=== PATIENT | female | born 1945 | race Caucasian/White ===

== ENCOUNTER 2016-08-15 10:33 | Day surgery (SDC) | payer MEDICARE, OTHER ==
[~2016-08-15 10:33] MED LIST: Brimonidine 0.2% Ophth Soln 5 ML Bottle ONE; Cataract Ophth Solution EYELF PRN; Hypromellose 2.5% Ophth Soln 15 ML Bottle EYELF PRN; Lactated Ringers 1,000 ML IV SCH; Lidocaine 1% 2 ML ONE; Lidocaine 3.5% Ophth Gel 1 ML Bottle ONE; Povidone-Iodine 5% Sterile Ophth Soln 30 ML Bottle ONE
[2016-08-15] MEDS: Proparacaine 0.5% Ophth Soln 15 ML Bottle EYELF PRN ×2 (10:55→12:35)
[2016-08-15] MEDS ORDERED: Lidocaine 1% PF 2 ML SDV INFILT ONE (12:36)
[2016-08-15] MEDS ORDERED: Chondroitin Sulfate/Hyaluronate Sodium Ophth Inj 0.5 ML Syringe IOCULAR ONE (12:37)
[2016-08-15] MEDS ORDERED: Ciprofloxacin 0.3% Ophth Soln 2.5 ML Bottle EYELF ONE (12:38)
[2016-08-15] MEDS ORDERED: Vancomycin 500 MG SDV EYELF ONE (12:38)
[2016-08-15] MEDS ORDERED: Balanced Salt Solution Ophth Irrig 500 ML Bottle IOCULAR ONE (12:39)
[2016-08-15 12:54] VITALS: BP 165/72
--- NOTE | 2016-08-15 17:38 | OR ---
PREOPERATIVE DIAGNOSIS: Senile nuclear cataract, left eye. POSTOPERATIVE DIAGNOSIS: Pseudophakia, left eye. PROCEDURE PERFORMED: Cataract extraction with intraocular lens implantation by phacoemulsification technique, left eye. ANESTHESIA: Topical anesthesia. ESTIMATED BLOOD LOSS: None. COMPLICATIONS: None. INDICATIONS: The patient is a 71-year-old female who was found to have a senile nuclear cataract, reducing her best corrected visual acuity. After explaining the risks, benefits, and alternatives of cataract surgery, an informed consent was obtained. DESCRIPTION OF PROCEDURE: After identifying the patient in the preoperative area, the patient was brought to the operating room. The patient was prepped and draped in a sterile fashion. A lid speculum was inserted into the eye. The microscope was brought into the field. Lidocaine gel was applied to the external surface of the eye. A paracentesis was made 3 clock hours away from the surgeon's operating hand. The anterior chamber was anesthetized with preservative-free Lidocaine. The anterior chamber was filled with Viscoat. A clear corneal incision was made at the 180-degree meridian with a 2.75mm keratome. A continuous tear circular capsulorrhexis was performed. The nucleus was hydrodissected with balanced salt solution. The nucleus was sculpted and removed from the eye using a divide and conquer technique with the phacoemulsification handpiece. The residual viscoelastic was removed with the I/A handpiece. The anterior chamber and capsular bag were filled with Amvisc. An BHAKTI lens, model PCB00 with a power of 22.0 diopters and a serial number of [id number] was injected into the capsular bag. The lens was rotated completely into the capsular bag with a Sinskey hook. The residual viscoelastic was removed with the I/A handpiece. The anterior chamber was filled with balanced salt solution to a physiologic pressure. The corneal wound was closed with stromal hydration and seen to be water tight by Weck-Frances sponge testing. The patient received a drop of Zymar and Alphagan at the end of the case. There were no complications of this case. The patient will be followed postoperatively by Dr. Mala Rice. SKA: 08/15/2016 13:02:26 MODL: 08/15/2016 17:30:24 /[id number]
== END 2016-08-15 13:20 | disposition home or self-care (01) ==
LOC: VM.SDS 10:33
PROVIDERS: ATTEND Ophthalmology
DX: H25.12 Age-related nuclear cataract, left eye (principal); Z96.1 Presence of intraocular lens; I10 Essential (primary) hypertension; Z88.2 Allergy status to sulfonamides; Z88.8 Allergy status to other drugs, medicaments and biological substances; Z98.890 Other specified postprocedural states; Z79.899 Other long term (current) drug therapy
CPT/HCPCS: 00142; 66984; A9270; J3370; J7120; V2632

== ENCOUNTER 2016-09-12 09:04 | Day surgery (SDC) | payer MEDICARE, OTHER ==
[~2016-09-12 09:04] MED LIST changes: -Cataract Ophth Solution EYELF PRN; +Cataract Ophth Solution EYERT PRN; -Hypromellose 2.5% Ophth Soln 15 ML Bottle EYELF PRN; +Hypromellose 2.5% Ophth Soln 15 ML Bottle EYERT PRN; -Lactated Ringers 1,000 ML IV SCH; +Sodium Chloride 0.9% 10 ML Syringe FLUSH PRN
[2016-09-12] MEDS: Proparacaine 0.5% Ophth Soln 15 ML Bottle EYERT PRN ×2 (09:53→11:55)
[2016-09-12] MEDS ORDERED: Lidocaine 1% PF 2 ML SDV INFILT ONE (11:52)
[2016-09-12] MEDS ORDERED: Chondroitin Sulfate/Hyaluronate Sodium Ophth Inj 0.5 ML Syringe IOCULAR ONE (11:53)
[2016-09-12] MEDS ORDERED: Ciprofloxacin 0.3% Ophth Soln 2.5 ML Bottle EYERT ONE (11:53)
[2016-09-12] MEDS ORDERED: Vancomycin 500 MG SDV EYERT ONE (11:53)
[2016-09-12] MEDS ORDERED: Balanced Salt Solution Ophth Irrig 500 ML Bottle IOCULAR ONE (11:54)
[2016-09-12 12:07] VITALS: BP 183/92
--- NOTE | 2016-09-12 17:03 | OR ---
PREOPERATIVE DIAGNOSIS: Senile nuclear cataract, right eye. POSTOPERATIVE DIAGNOSIS: Pseudophakia, right eye. PROCEDURE PERFORMED: Cataract extraction with intraocular lens implantation by phacoemulsification technique, right eye. ANESTHESIA: Topical anesthesia. ESTIMATED BLOOD LOSS: None. COMPLICATIONS: None. SURGEON: Gurinder Figueroa M.D. INDICATIONS: The patient is a 71-year-old female, who was found to have a senile nuclear cataract, reducing her best corrected visual acuity. After explaining the risks, benefits, and alternatives of cataract surgery, an informed consent was obtained. DESCRIPTION OF PROCEDURE: After identifying the patient in the preoperative area, the patient was brought to the operating room. The patient was prepped and draped in a sterile fashion. A lid speculum was inserted into the eye. The microscope was brought into the field. Lidocaine gel was applied to the external surface of the eye. A paracentesis was made 3 clock hours away from the surgeon's operating hand. The anterior chamber was anesthetized with preservative-free Lidocaine. The anterior chamber was filled with Viscoat. A clear corneal incision was made at the 180-degree meridian with a 2.75mm keratome. A continuous tear circular capsulorrhexis was performed. The nucleus was hydrodissected with balanced salt solution. The nucleus was sculpted and removed from the eye using a divide and conquer technique with the phacoemulsification handpiece. The residual viscoelastic was removed with the I/A handpiece. The anterior chamber and capsular bag were filled with Amvisc. An BHAKTI lens, model ZCB00 with a power of 22.0 diopters and a serial number of [id number] was injected into the capsular bag. The lens was rotated completely into the capsular bag with a Sinskey hook. The residual viscoelastic was removed with the I/A handpiece. The anterior chamber was filled with balanced salt solution to a physiologic pressure. The corneal wound was closed with stromal hydration and seen to be water tight by Weck-Frances sponge testing. The patient received a drop of Zymar and Alphagan at the end of the case. There were no complications of this case. The patient will be followed postoperatively by Dr. Mala Rice. SKA: 09/12/2016 12:12:02 MODL: 09/12/2016 16:49:49 /[id number]
== END 2016-09-12 12:29 | disposition home or self-care (01) ==
LOC: VM.SDS 09:04
PROVIDERS: ATTEND Ophthalmology
DX: Z96.1 Presence of intraocular lens (principal); H25.11 Age-related nuclear cataract, right eye; Z88.2 Allergy status to sulfonamides; Z88.8 Allergy status to other drugs, medicaments and biological substances; I10 Essential (primary) hypertension; Z98.890 Other specified postprocedural states; Z79.899 Other long term (current) drug therapy
CPT/HCPCS: 00142; 66984; A9270; C1780; J3370

== ENCOUNTER 2017-01-06 06:00 | Emergency (ER) | payer MEDICARE, OTHER ==
[2017-01-06] MEDS ORDERED: Sodium Chloride 0.9% 10 ML Syringe FLUSH PRN (06:07)
[2017-01-06] MEDS ORDERED: Sodium Chloride 0.9% 1,000 ML IV ONE (06:07)
--- NOTE | 2017-01-06 06:15 | EDM.PDOC ---
<Bryant Paulino - Last Filed: 01/06/17 06:52> ED HPI GENERAL MEDICAL PROBLEM - General Chief Complaint: Neuro Symptoms/Deficits Stated Complaint: Nausea/Chills Time Seen by Provider: 01/06/17 06:00 Source of Information: Reports: Patient, Family, RN, RN Notes Reviewed History Limitations: Reports: No Limitations - History of Present Illness INITIAL COMMENTS - FREE TEXT/NARRATIVE: Patient presents to the ED at [facility] with multiple vague complaints. Patients states last night at supper at a local restaurant, she "passed out" less than a minute for no apparent reason. Her was with and did see her "slump her head to the left and hit it on the table." Patient states since then , she has been feeling "whoozy" and her coordination seems to be off. She feels a little unsteady on her feet. She had not falling. She has a history of a brain tumor 1998. No numbness, tingling, or paresthesia to any extremity. No chest pain or shortness of breath. No headache. Onset Date: 01/05/17 Right Hip Pain Score (Numeric/FACES): 4 - Related Data Allergies Allergy/AdvReac Type Severity Reaction Status Date / Time Cydggev-Cdt-Aso Reductase Allergy Other Verified 01/06/17 06:05 Inhibitor Sulfa (Sulfonamide Allergy Hives Verified 01/06/17 06:05 Antibiotics) Home Meds: Home Meds Phenytoin Sodium Extended [Dilantin] 100 mg PO DAILY 08/03/15 [History] Aspirin [Ecotrin] 81 mg PO DAILY 08/13/16 [History] Celecoxib [CeleBREX] 200 mg PO ASDIRECTED PRN 08/13/16 [History] Diazepam [Valium] 2.5 - 5 mg PO ASDIRECTED PRN 08/13/16 [History] Enalapril Maleate [Vasotec] 20 mg PO DAILY 08/13/16 [History] Gabapentin [Neurontin] 200 mg PO DAILY 08/13/16 [History] Ibuprofen [Advil] 400 mg PO Q6H PRN 08/13/16 [History] Triamterene/Hydrochlorothiazid [Triamterene-HCTZ 37.5-25 MG] 1 tab PO DAILY [History] Past Medical History HEENT History: Reports: Cataract Cardiovascular History: Reports: Hypertension Respiratory History: Reports: None Gastrointestinal History: Reports: None Genitourinary History: Reports: None Musculoskeletal History: Reports: Back Pain, Chronic Neurological History: Reports: Seizure Psychiatric History: Reports: None Endocrine/Metabolic History: Reports: None Hematologic History: Reports: None Immunologic History: Reports: None Oncologic (Cancer) History: Reports: None Dermatologic History: Reports: None - Past Surgical History HEENT Surgical History: Reports: Eye Surgery Cardiovascular Surgical History: Reports: None GI Surgical History: Reports: None Neurological Surgical History: Reports: Other (See Below) Other Neurological Surgeries/Procedures: EPIDERAL STEROID INJECTIONS Musculoskeletal Surgical History: Reports: None Social & Family History - Tobacco Use Smoking Status *Q: Never Smoker - Recreational Drug Use Recreational Drug Use: No Drug Use in Last 12 Months: No ED ROS GENERAL - Review of Systems Review Of Systems: See Below Constitutional: Reports: Weakness. Denies: Fever, Chills Respiratory: Denies: Shortness of Breath, Cough Cardiovascular: Denies: Chest Pain, Palpitations GI/Abdominal: Reports: Nausea. Denies: Abdominal Pain, Vomiting Skin: Reports: No Symptoms Neurological: Reports: Confusion, Difficulty Walking, Weakness, Gait Disturbance. Denies: Headache, Numbness, Paresthesia, Tingling ED EXAM, GENERAL - Physical Exam Exam: See Below Exam Limited By: No Limitations General Appearance: Alert, No Apparent Distress Eye Exam: Bilateral Eye: EOMI, Normal Inspection, PERRL Ears: Normal External Exam, Normal Canal, Normal TMs Ear Exam: Bilateral Ear: TM normal Head: Atraumatic, Normocephalic Neck: Supple Respiratory/Chest: No Respiratory Distress, Lungs Clear, Normal Breath Sounds Cardiovascular: Normal Peripheral Pulses, Regular Rate, Rhythm, No Murmur Peripheral Pulses: 2+: Radial (L), Radial (R) GI/Abdominal: Normal Bowel Sounds, Soft, Non-Tender Extremities: Normal Inspection Neurological: Alert, Oriented, Normal Cognition Skin Exam: Warm, Dry, Intact, Normal Color, No Rash EKG INTERPRETATION EKG Date: 01/06/17 Time: 06:48 Rhythm: NSR Rate (Beats/Min): 68 Colman: Normal P-Wave: Present QRS: Normal ST-T: Normal QT: Normal OH/PQ Interval: 0.20 Comparison: NA - No Prior EKG EKG Interpretation Comments: 1. Sinus Rhythm with Sinus Arrhythmia 2. Moderate intraventricular conduction delay Course - Vital Signs Last Recorded V/S: Last Vital Signs Temp 36.4 C 01/06/17 06:24 Pulse 72 01/06/17 07:25 Resp 16 01/06/17 06:24 BP 157/80 H 01/06/17 07:25 Pulse Ox 97 01/06/17 06:24 - Orders/Labs/Meds Labs: Laboratory Tests 01/06/17 01/06/17 01/06/17 Range/Units 06:34 06:34 06:34 WBC 6.6 (4.0-10.0) x10^3/uL RBC 4.36 (4.00-5.50) x10^6/uL Hgb 13.5 (12.0-16.0) g/dL Hct 39.1 (33.0-47.0) % MCV 89.7 (78.0-93.0) fL MCH 31.0 (26.0-32.0) pg MCHC 34.5 (32.0-36.0) g/dL RDW Coeff of Stas 14.4 (10.0-15.0) % Plt Count 252 (130-400) x10^3/uL Neut % (Auto) 74.0 (50.0-80.0) % Lymph % (Auto) 14.6 L (25.0-50.0) % Carver % (Auto) 10.5 (2.0-11.0) % Eos % (Auto) 0.6 (0.0-4.0) % Baso % (Auto) 0.3 (0.2-1.2) % Sodium 130 L (136-145) mmol/L Potassium 3.6 (3.5-5.1) mmol/L Chloride 93 L (98-107) mmol/L Carbon Dioxide 29 (21-32) mmol/L BUN 13 (7-18) mg/dL Creatinine 0.8 (0.55-1.02) mg/dL Est Cr Clr Drug Dosing 49.53 mL/min Estimated GFR (MDRD) > 60 Glucose 107 H (74-106) mg/dL Calcium 8.9 (8.5-10.1) mg/dL Phosphorus 2.8 (2.6-4.7) mg/dL Magnesium 1.6 L (1.8-2.4) mg/dL Creatine Kinase 81 (26-192) U/L Creatine Kinase Index TNP CK-MB (CK-2) TNP Troponin I < 0.017 (<=0.056) ng/mL Urine Color (YELLOW) POC Urine Appearance (CLEAR) POC Urine pH (5.0-8.0) Ur Specific [place] (1.005-1.030) POC Urine Protein (NEGATIVE) POC Ur Glucose (UA) (NEGATIVE) POC Urine Ketones (NEGATIVE) POC Ur Occult Blood (NEGATIVE) POC Urine Nitrite (NEGATIVE) POC Urine Bilirubin (NEGATIVE) POC Urine Urobilinogen (0.2) POC U Leukocyte Esteras (NEGATIVE) Urine RBC Urine WBC Ur Squamous Epith Cells Urine Bacteria Urine Mucus Urine Opiates Screen (NEGATIVE) Ur Buprenorphine Scrn (NEGATIVE) Ur Oxycodone Screen (NEGATIVE) Urine Methadone Screen (NEGATIVE) Ur Barbituates Screen (NEGATIVE) Phenytoin 4 L (10-20) ug/mL Ur Tricyclics Screen (NEGATIVE) Ur Amphetamines Screen (NEGATIVE) U Methamphetamines Scrn (NEGATIVE) Urine MDMA Screen (NEGATIVE) U Benzodiazepines Scrn (NEGATIVE) Urine Cocaine Screen (NEGATIVE) U Marijuana (THC) Screen (NEGATIVE) 01/06/17 Range/Units 07:20 WBC (4.0-10.0) x10^3/uL RBC (4.00-5.50) x10^6/uL Hgb (12.0-16.0) g/dL Hct (33.0-47.0) % MCV (78.0-93.0) fL MCH (26.0-32.0) pg MCHC (32.0-36.0) g/dL RDW Coeff of Stas (10.0-15.0) % Plt Count (130-400) x10^3/uL Neut % (Auto) (50.0-80.0) % Lymph % (Auto) (25.0-50.0) % Carver % (Auto) (2.0-11.0) % Eos % (Auto) (0.0-4.0) % Baso % (Auto) (0.2-1.2) % Sodium (136-145) mmol/L Potassium (3.5-5.1) mmol/L Chloride (98-107) mmol/L Carbon Dioxide (21-32) mmol/L BUN (7-18) mg/dL Creatinine (0.55-1.02) mg/dL Est Cr Clr Drug Dosing mL/min Estimated GFR (MDRD) Glucose (74-106) mg/dL Calcium (8.5-10.1) mg/dL Phosphorus (2.6-4.7) mg/dL Magnesium (1.8-2.4) mg/dL Creatine Kinase (26-192) U/L Creatine Kinase Index CK-MB (CK-2) Troponin I (<=0.056) ng/mL Urine Color Yellow (YELLOW) POC Urine Appearance Clear (CLEAR) POC Urine pH 6.5 (5.0-8.0) Ur Specific [place] 1.015 (1.005-1.030) POC Urine Protein 30 H (NEGATIVE) POC Ur Glucose (UA) Negative (NEGATIVE) POC Urine Ketones Negative (NEGATIVE) POC Ur Occult Blood Negative (NEGATIVE) POC Urine Nitrite Negative (NEGATIVE) POC Urine Bilirubin Negative (NEGATIVE) POC Urine Urobilinogen 0.2 (0.2) POC U Leukocyte Esteras Negative (NEGATIVE) Urine RBC 0-5 Urine WBC 0-5 Ur Squamous Epith Cells Many Urine Bacteria Not seen Urine Mucus Few Urine Opiates Screen Negative (NEGATIVE) Ur Buprenorphine Scrn Negative (NEGATIVE) Ur Oxycodone Screen Negative (NEGATIVE) Urine Methadone Screen Negative (NEGATIVE) Ur Barbituates Screen Negative (NEGATIVE) Phenytoin (10-20) ug/mL Ur Tricyclics Screen Negative (NEGATIVE) Ur Amphetamines Screen Negative (NEGATIVE) U Methamphetamines Scrn Negative (NEGATIVE) Urine MDMA Screen Negative (NEGATIVE) U Benzodiazepines Scrn Negative (NEGATIVE) Urine Cocaine Screen Negative (NEGATIVE) U Marijuana (THC) Screen Negative (NEGATIVE) Meds: Medications Discontinued Medications Generic Name Dose Route Start Last Admin Trade Name Freq PRN Reason Stop Dose Admin Sodium Chloride 1,000 mls @ 999 mls/hr 01/06/17 06:07 01/06/17 06:22 Normal Saline IV 01/06/17 07:07 999 mls/hr ONETIME ONE Administration Magnesium Chloride 64 mg 01/06/17 07:11 01/06/17 07:19 Mag-64 PO 01/06/17 07:12 64 mg ONETIME ONE Administration Ondansetron HCl 4 mg 01/06/17 06:16 01/06/17 06:22 Zofran IVPUSH 01/06/17 06:17 4 mg ONETIME ONE Administration Oral Electrolytes 1 each 01/06/17 07:27 Thermotabs PO 01/06/17 07:28 ONETIME ONE Sodium Chloride 10 ml 01/06/17 06:07 Saline Flush FLUSH ASDIRECTED PRN Keep Vein Open Departure - Departure Disposition: Home, Self-Care 01 Clinical Impression: Syncope Qualifiers: Syncope type: unspecified Qualified Code(s): R55 - Syncope and collapse - Discharge Information Instructions: Syncope, [id number] Referrals: Sanna Montes TOGGLER [Primary Care Provider] - Forms: ED Department Discharge Additional Instructions: 1. Follow up with Sanna at [facility]. She may want to see you and send you to both neurology and cardiology to determine why you fainted this evening. 2. All labs and diagnostic tests were negative as to a cause. Your heart enzymes, EKG, head CT and labs are negative. Your sodium and magnesium are low. 3. Drink plenty of water to stay hydrated. You may want to take some salt tablets to raise your sodium level and have this rechecked at [facility]. 4. It is possible that this the beginning of a viral illness based on some of your continuing illness such as nausea. 5. Please call us if you have any questions or concerns or if you feel your symptoms are worsening. - Problem List Review Problem List Initiated/Reviewed/Updated: Yes <Luan Teague - Last Filed: 01/07/17 11:38> Course - Re-Assessments/Exams Free Text/Narrative Re-Assessment/Exam: 01/06/17 07:28 Review of labs; Na 130, K+ 3.6, M.6, negative troponin, dilantin level low Departure - Departure Time of Disposition: 07:35 Condition: Good - Problem List & Annotations (1) Syncope SNOMED Code(s): 017243662 Code(s): R55 - SYNCOPE AND COLLAPSE Status: Acute Priority: Medium Qualifiers: Syncope type: unspecified Qualified Code(s): R55 - Syncope and collapse - Assessment/Plan Assessment:: Syncope Plan: 1. Follow up with Sanna at [facility]. She may want to see you and send you to both neurology and cardiology to determine why you fainted this evening. 2. All labs and diagnostic tests were negative as to a cause. Your heart enzymes, EKG, head CT and labs are negative. Your sodium and magnesium are low. 3. Drink plenty of water to stay hydrated. You may want to take some salt tablets to raise your sodium level and have this rechecked at [facility]. 4. It is possible that this the beginning of a viral illness based on some of your continuing illness such as nausea. 5. Please call us if you have any questions or concerns or if you feel your symptoms are worsening.
[2017-01-06] MEDS ORDERED: Ondansetron 4 MG/2 ML SDV IVPUSH ONE (06:16)
[2017-01-06 07:09] LABS: CHLORIDE,CL 93 mmol/L (98-107); SODIUM,NA 130 mmol/L (136-145)
[2017-01-06] MEDS ORDERED: Magnesium Chloride 64 MG Tab.ER PO ONE (07:11)
[2017-01-06] MEDS ORDERED: Potassium Chloride/Sodium Chloride Tab PO ONE (07:27)
[2017-01-06 08:19] VITALS: BP 157/80
== END 2017-01-06 07:45 | disposition home or self-care (01) ==
LOC: VM.ED 06:00
DX: R55 Syncope and collapse (principal); I10 Essential (primary) hypertension; Z88.8 Allergy status to other drugs, medicaments and biological substances; Z88.2 Allergy status to sulfonamides; Z79.899 Other long term (current) drug therapy; Z79.82 Long term (current) use of aspirin
CPT/HCPCS: 36415; 70450; 80048; 80185; 80305; 81002; 81015; 82550; 83735; 84100; 84484; 85025; 93005; 96361; 96374; 99284; A9270; J2405; J7030

== ENCOUNTER 2017-08-06 19:10 | Emergency (ER) | payer MEDICARE, OTHER ==
[2017-08-06 19:28] VITALS: BP 124/84
--- NOTE | 2017-08-06 19:50 | EDM.PDOC ---
ED HPI GENERAL MEDICAL PROBLEM - General Chief Complaint: Upper Extremity Injury/Pain Stated Complaint: right shoulder pain Time Seen by Provider: 08/06/17 19:23 Source of Information: Reports: Patient, RN, RN Notes Reviewed - History of Present Illness INITIAL COMMENTS - FREE TEXT/NARRATIVE: Patient comes to the ED with complaints of right shoulder pain. She states her right shoulder was feeling achy yesterday, but was not painful. Today she was at [facility] and her arm started to hurt and she is unable to move without pain. She denies any previous injury. She denies numbness or tingling to her arm. She does state she had seen Dr. Mayer at [facility] about 6-8 months ago and had a cortisone shot to that shoulder. She states they told her she did not want to do surgery at that time. She denies having an MRI done on this shoulder. Patient denies shortness of breath or chest pain. Onset: Other Onset Date: 08/05/17 Duration: Day(s):, Getting Worse Location: Reports: Upper Extremity, Right Quality: Reports: Sharp Severity: Moderate Improves with: Reports: Immobilization Worsens with: Reports: Immobilization Associated Symptoms: Reports: No Other Symptoms. Denies: Chest Pain, Fever/ Chills, Shortness of Breath Right Shoulder Pain Score (Numeric/FACES): 7 - Related Data Allergies Allergy/AdvReac Type Severity Reaction Status Date / Time Rctdvpa-Nzd-Kkh Reductase Allergy Other Verified 08/06/17 19:49 Inhibitor Sulfa (Sulfonamide Allergy Hives Verified 08/06/17 19:49 Antibiotics) Home Meds: Home Meds Phenytoin Sodium Extended [Dilantin] 100 mg PO DAILY 08/03/15 [History] Aspirin [Ecotrin] 81 mg PO DAILY 08/13/16 [History] Celecoxib [CeleBREX] 200 mg PO ASDIRECTED PRN 08/13/16 [History] Diazepam [Valium] 2.5 - 5 mg PO ASDIRECTED PRN 08/13/16 [History] Enalapril Maleate [Vasotec] 20 mg PO DAILY 08/13/16 [History] Ibuprofen [Advil] 400 mg PO Q6H PRN 08/13/16 [History] Triamterene/Hydrochlorothiazid [Triamterene-HCTZ 37.5-25 MG] 1 tab PO DAILY [History] Gluc Corrales/Msm/Chondro Corrales A/C/Mn [Flexi Joint Tablet] 1 each PO BID 08/06/17 [ History] Pantoprazole Sodium [Protonix] 20 mg PO DAILY 08/06/17 [History] Pravastatin Sodium 10 mg PO BEDTIME 08/06/17 [History] Triamcinolone Acetonide [Triamcinolone Acetonide 0.1% Crm] 15 gm TOP ASDIRECTED 08/06/17 [History] Past Medical History HEENT History: Reports: Cataract Cardiovascular History: Reports: Hypertension Respiratory History: Reports: None Gastrointestinal History: Reports: None Genitourinary History: Reports: None Musculoskeletal History: Reports: Back Pain, Chronic Neurological History: Reports: Seizure Psychiatric History: Reports: None Endocrine/Metabolic History: Reports: None Hematologic History: Reports: None Immunologic History: Reports: None Oncologic (Cancer) History: Reports: None Dermatologic History: Reports: None - Past Surgical History HEENT Surgical History: Reports: Eye Surgery Cardiovascular Surgical History: Reports: None GI Surgical History: Reports: None Neurological Surgical History: Reports: Other (See Below) Other Neurological Surgeries/Procedures: EPIDERAL STEROID INJECTIONS Musculoskeletal Surgical History: Reports: None Social & Family History - Tobacco Use Smoking Status *Q: Never Smoker - Alcohol Use Alcohol Use History: No - Recreational Drug Use Recreational Drug Use: No Drug Use in Last 12 Months: No Review of Systems - Review of Systems Review Of Systems: See Below Constitutional: Reports: No Symptoms Respiratory: Reports: No Symptoms. Denies: Shortness of Breath Cardiovascular: Reports: No Symptoms. Denies: Chest Pain Musculoskeletal: Reports: Shoulder Pain. Denies: Arm Pain Skin: Reports: No Symptoms. Denies: Bruising Neurological: Denies: Numbness, Tingling ED EXAM, GENERAL - Physical Exam Exam: See Below Exam Limited By: No Limitations General Appearance: Alert, No Apparent Distress Neck: Normal Inspection, Supple, Non-Tender, Full Range of Motion Respiratory/Chest: No Respiratory Distress, Lungs Clear, Normal Breath Sounds, No Accessory Muscle Use, Chest Non-Tender Cardiovascular: Normal Peripheral Pulses, Regular Rate, Rhythm, No Edema, No Gallop, No JVD, No Murmur, No Rub Peripheral Pulses: 2+: Radial (L), Radial (R) Extremities: Normal Capillary Refill, Limited Range of Motion. No: Normal Range of Motion Neurological: Alert, Oriented, CN II-XII Intact, Normal Cognition, Normal Gait, Normal Reflexes, No Motor/Sensory Deficits Psychiatric: Normal Affect, Normal Mood Skin Exam: Warm, Dry, Intact, Normal Color, No Rash Lymphatic: No Adenopathy Course - Vital Signs Last Recorded V/S: Last Vital Signs Temp 36.1 C 08/06/17 19:25 Pulse 82 08/06/17 19:25 Resp 18 08/06/17 19:25 BP 124/84 08/06/17 19:25 Pulse Ox 97 08/06/17 19:25 - Orders/Labs/Meds Orders: Active Orders 24 hr Category Date Time Status Shoulder Comp Rt [CR] Stat Exams 08/06/17 19:38 Taken - Radiology Interpretation Free Text/Narrative:: Shoulder left 3 view: No acute plain film findings - see scanned report in the EMR. Departure - Departure Time of Disposition: 20:33 Disposition: Home, Self-Care 01 Condition: Good Clinical Impression: Shoulder pain, right Qualifiers: Chronicity: acute Qualified Code(s): M25.511 - Pain in right shoulder - Discharge Information Instructions: Shoulder Pain, How to Use a Sling, [id number] Referrals: PCP,Unknown [Primary Care Provider] - Christina Rausch NP [Ordering Only Provider] - Forms: ED Department Discharge Additional Instructions: May alternate tylenol/ibuprofen as needed for the pain. May use sling for comfort. Stay well hydrated and rest. Follow up with your PCP this week for further workup. Call with questions or concerns. - Problem List Review Problem List Initiated/Reviewed/Updated: Yes - My Orders Last 24 Hours: My Active Orders 08/06/17 19:38 Shoulder Comp Rt [CR] Stat - Assessment/Plan Last 24 Hours: My Active Orders 08/06/17 19:38 Shoulder Comp Rt [CR] Stat
== END 2017-08-06 20:48 | disposition home or self-care (01) ==
LOC: VM.ED 19:10
DX: M25.511 Pain in right shoulder (principal); I10 Essential (primary) hypertension; Z88.2 Allergy status to sulfonamides; Z88.8 Allergy status to other drugs, medicaments and biological substances; Z79.82 Long term (current) use of aspirin; Z79.899 Other long term (current) drug therapy
CPT/HCPCS: 73030-RT; 99283

== ENCOUNTER 2018-01-21 12:17 | Emergency (ER) | payer MEDICARE, OTHER ==
[2018-01-21] MEDS ORDERED: Sodium Chloride 0.9% 10 ML Syringe FLUSH PRN (12:37)
[2018-01-21] MEDS ORDERED: Lactated Ringers 1,000 ML IV SCH (12:45)
[2018-01-21] MEDS ORDERED: Iopamidol 612 MG/ML 100 ML Bottle IVPUSH ONE (13:09)
[2018-01-21 13:24] LABS: ANION GAP 11.8 mmol/L (10-20); CHLORIDE,CL 98 mmol/L (98-107); SODIUM,NA 137 mmol/L (136-145)
[2018-01-21] MEDS ORDERED: Ondansetron 4 MG/2 ML SDV IVPUSH ONE (13:43)
--- NOTE | 2018-01-21 13:58 | EDM.PDOC ---
ED HPI GENERAL MEDICAL PROBLEM - General Chief Complaint: Abdominal Pain Stated Complaint: ABDOMINAL PAIN Time Seen by Provider: 01/21/18 12:20 Source of Information: Reports: Patient History Limitations: Reports: No Limitations - History of Present Illness INITIAL COMMENTS - FREE TEXT/NARRATIVE: Patient does report nausea and vomiting over the last several days. She was seen at the [facility] yesterday and diagnosed with constipation. She was told to take stool softener/laxative. She states her result was watery stools. She denies fever, chest pain, sob, headache, change in LOC, blood in urine or stool. She states her pain is epigastric and worse with palpation. Onset: Today Onset Date: 01/20/18 Duration: Intermittent Location: Reports: Abdomen Quality: Reports: Sharp, Stabbing Severity: Moderate Worsens with: Reports: Other (palpation, eating) Associated Symptoms: Reports: Nausea/Vomiting Epigastric Pain Score (Numeric/FACES): 9 - Related Data Allergies Allergy/AdvReac Type Severity Reaction Status Date / Time Cuffmfh-Trj-Pto Reductase Allergy Other Verified 01/21/18 12:31 Inhibitor Sulfa (Sulfonamide Allergy Hives Verified 01/21/18 12:31 Antibiotics) Home Meds: Home Meds Phenytoin Sodium Extended [Dilantin] 100 mg PO DAILY 08/03/15 [History] Aspirin [Ecotrin] 81 mg PO DAILY 08/13/16 [History] Celecoxib [CeleBREX] 200 mg PO ASDIRECTED PRN 08/13/16 [History] Diazepam [Valium] 2.5 - 5 mg PO ASDIRECTED PRN 08/13/16 [History] Enalapril Maleate [Vasotec] 20 mg PO DAILY 08/13/16 [History] Ibuprofen [Advil] 400 mg PO Q6H PRN 08/13/16 [History] Triamterene/Hydrochlorothiazid [Triamterene-HCTZ 37.5-25 MG] 1 tab PO DAILY [History] Gluc [place]/Msm/Chondro [place] A/C/Mn [Flexi Joint Tablet] 1 each PO BID 08/06/17 [ History] Pantoprazole Sodium [Protonix] 20 mg PO DAILY 08/06/17 [History] Pravastatin Sodium 10 mg PO BEDTIME 08/06/17 [History] Triamcinolone Acetonide [Triamcinolone Acetonide 0.1% Crm] 15 gm TOP ASDIRECTED 08/06/17 [History] Past Medical History HEENT History: Reports: Cataract Cardiovascular History: Reports: Hypertension Respiratory History: Reports: None Gastrointestinal History: Reports: None Genitourinary History: Reports: None Musculoskeletal History: Reports: Back Pain, Chronic Neurological History: Reports: Seizure Psychiatric History: Reports: None Endocrine/Metabolic History: Reports: None Hematologic History: Reports: None Immunologic History: Reports: None Oncologic (Cancer) History: Reports: None Dermatologic History: Reports: None - Past Surgical History HEENT Surgical History: Reports: Eye Surgery Cardiovascular Surgical History: Reports: None GI Surgical History: Reports: None Neurological Surgical History: Reports: Other (See Below) Other Neurological Surgeries/Procedures: EPIDERAL STEROID INJECTIONS Musculoskeletal Surgical History: Reports: None Social & Family History - Tobacco Use Smoking Status *Q: Unknown Ever Smoked ED ROS GENERAL - Review of Systems Review Of Systems: See Below Constitutional: Reports: No Symptoms HEENT: Reports: No Symptoms Respiratory: Reports: No Symptoms Cardiovascular: Reports: No Symptoms Endocrine: Reports: No Symptoms GI/Abdominal: Reports: Abdominal Pain, Nausea, Vomiting : Reports: No Symptoms Musculoskeletal: Reports: No Symptoms Skin: Reports: No Symptoms Neurological: Reports: No Symptoms Psychiatric: Reports: No Symptoms Hematologic/Lymphatic: Reports: No Symptoms Immunologic: Reports: No Symptoms ED EXAM, GI/ABD - Physical Exam Exam: See Below Exam Limited By: No Limitations General Appearance: Alert, WD/WN, Mild Distress Eyes: Bilateral: EOMI Ears: Normal TMs Throat/Mouth: Normal Inspection, Normal Lips, Normal Teeth, Normal Gums, Normal Oropharynx, Normal Voice, No Airway Compromise Head: Atraumatic, Normocephalic Neck: Normal Inspection, Supple, Non-Tender, Full Range of Motion Respiratory/Chest: No Respiratory Distress, Lungs Clear, Normal Breath Sounds, No Accessory Muscle Use, Chest Non-Tender Cardiovascular: Normal Peripheral Pulses, Regular Rate, Rhythm, No Edema, No Gallop, No JVD, No Rub, Systolic Murmur, Other (valve click) GI/Abdominal Exam: Normal Bowel Sounds, Soft, No Distention, Tender Back Exam: Normal Inspection, Full Range of Motion, NT Extremities: Normal Inspection, Normal Range of Motion, Non-Tender, Normal Capillary Refill, No Pedal Edema Neurological: Alert, Oriented, CN II-XII Intact, Normal Cognition, Normal Gait, Normal Reflexes, No Motor/Sensory Deficits Psychiatric: Normal Affect, Normal Mood Skin Exam: Warm, Dry, Intact, Normal Color, No Rash Lymphatic: No Adenopathy EKG INTERPRETATION EKG Date: 01/21/18 Time: 13:07 Rhythm: Other (sinus with first degree av block) Rate (Beats/Min): 84 [place]: Normal P-Wave: Present QRS: Normal ST-T: Normal QT: Normal Course - Vital Signs Last Recorded V/S: Last Vital Signs Temp 36.2 C 01/21/18 12:20 Pulse 80 01/21/18 12:20 Resp 18 01/21/18 12:20 BP 124/80 01/21/18 12:20 Pulse Ox 93 L 01/21/18 12:20 - Orders/Labs/Meds Orders: Active Orders 24 hr Category Date Time Status EKG Documentation Completion [RC] STAT Care 01/21/18 12:28 Ordered Abdomen Pelvis w Cont [CT] Stat Exams 01/21/18 12:28 Ordered MAGNESIUM [CHEM] Stat Lab 01/21/18 13:41 Ordered URINALYSIS W/MICROSCOPIC [UA W/MICROSCOPIC] [URIN] Stat Lab 01/21/18 13:41 Ordered Lactated Ringers @ 125 MLS/HR(1,000ml) Med 01/21/18 12:45 Ordered Lactated Ringers [Ringers, Lactated] 1,000 ml IV ASDIRECTED Sodium Chloride 0.9% [Saline Flush] Med 01/21/18 12:37 Ordered 10 ml FLUSH ASDIRECTED PRN Saline Lock Insert [OM.PC] Routine Oth 01/21/18 12:37 Ordered Medication Orders Lactated Ringer's (Ringers, Lactated) 1,000 mls @ 125 mls/hr IV ASDIRECTED MÓNICA Last Admin: 01/21/18 13:03 Dose: 125 mls/hr Sodium Chloride (Saline Flush) 10 ml FLUSH ASDIRECTED PRN PRN Reason: Keep Vein Open Labs: Laboratory Tests 01/21/18 01/21/18 01/21/18 Range/Units 12:44 12:44 12:44 WBC 5.9 (4.0-10.0) x10^3/uL RBC 4.39 (4.00-5.50) x10^6/uL Hgb 13.6 (12.0-16.0) g/dL Hct 39.5 (33.0-47.0) % MCV 90.0 (78.0-93.0) fL MCH 31.0 (26.0-32.0) pg MCHC 34.4 (32.0-36.0) g/dL RDW Coeff of Stas 14.4 (10.0-15.0) % Plt Count 245 (130-400) x10^3/uL Neut % (Auto) 56.8 (50.0-80.0) % Lymph % (Auto) 24.4 L (25.0-50.0) % [place] % (Auto) 15.7 H (2.0-11.0) % Eos % (Auto) 2.6 (0.0-4.0) % Baso % (Auto) 0.5 (0.2-1.2) % PT 10.7 (9.6-11.4) SEC INR 1.0 L (2.0-3.5) Sodium 137 (136-145) mmol/L Potassium 2.8 L* (3.5-5.1) mmol/L Chloride 98 (98-107) mmol/L Carbon Dioxide 30 (21-32) mmol/L Anion Gap 11.8 (10-20) mmol/L BUN 28 H (7-18) mg/dL Creatinine 1.1 H (0.55-1.02) mg/dL Est Cr Clr Drug Dosing 43.63 mL/min Estimated GFR (MDRD) 49 Glucose 97 (74-106) mg/dL Lactic Acid (0.4-2.0) mmol/L Calcium 9.7 (8.5-10.1) mg/dL Corrected Calcium 10.10 (8.5-10.1) mg/dL Total Bilirubin 0.4 (0.2-1.0) mg/dL AST 26 (15-37) U/L ALT 39 (14-59) U/L Alkaline Phosphatase 94 (46-116) U/L Troponin I < 0.017 (<=0.056) ng/mL NT-Pro-B Natriuret Pep (<=125) pg/mL Total Protein 8.0 (6.4-8.2) g/dL Albumin 3.5 (3.4-5.0) g/dL Globulin 4.5 Albumin/Globulin Ratio 0.78 Amylase 75 (25-115) U/L TSH, Ultra Sensitive 1.569 (0.358-3.74) uIU/mL 01/21/18 01/21/18 Range/Units 12:44 12:44 WBC (4.0-10.0) x10^3/uL RBC (4.00-5.50) x10^6/uL Hgb (12.0-16.0) g/dL Hct (33.0-47.0) % MCV (78.0-93.0) fL MCH (26.0-32.0) pg MCHC (32.0-36.0) g/dL RDW Coeff of Stas (10.0-15.0) % Plt Count (130-400) x10^3/uL Neut % (Auto) (50.0-80.0) % Lymph % (Auto) (25.0-50.0) % [place] % (Auto) (2.0-11.0) % Eos % (Auto) (0.0-4.0) % Baso % (Auto) (0.2-1.2) % PT (9.6-11.4) SEC INR (2.0-3.5) Sodium (136-145) mmol/L Potassium (3.5-5.1) mmol/L Chloride (98-107) mmol/L Carbon Dioxide (21-32) mmol/L Anion Gap (10-20) mmol/L BUN (7-18) mg/dL Creatinine (0.55-1.02) mg/dL Est Cr Clr Drug Dosing mL/min Estimated GFR (MDRD) Glucose (74-106) mg/dL Lactic Acid 1.3 (0.4-2.0) mmol/L Calcium (8.5-10.1) mg/dL Corrected Calcium (8.5-10.1) mg/dL Total Bilirubin (0.2-1.0) mg/dL AST (15-37) U/L ALT (14-59) U/L Alkaline Phosphatase (46-116) U/L Troponin I (<=0.056) ng/mL NT-Pro-B Natriuret Pep 47 (<=125) pg/mL Total Protein (6.4-8.2) g/dL Albumin (3.4-5.0) g/dL Globulin Albumin/Globulin Ratio Amylase (25-115) U/L TSH, Ultra Sensitive (0.358-3.74) uIU/mL Meds: Medications Generic Name Dose Route Start Last Admin Trade Name Freq PRN Reason Stop Dose Admin Lactated Ringer's 1,000 mls @ 125 mls/hr 01/21/18 12:45 01/21/18 13:03 Ringers, Lactated IV 125 mls/hr ASDIRECTED MÓNICA Administration Sodium Chloride 10 ml 01/21/18 12:37 Saline Flush FLUSH ASDIRECTED PRN Keep Vein Open Discontinued Medications Generic Name Dose Route Start Last Admin Trade Name Freq PRN Reason Stop Dose Admin Iopamidol 100 ml 01/21/18 13:09 01/21/18 13:46 Isovue-300 (61%) IVPUSH 01/21/18 13:10 100 ml ONETIME ONE Administration Ondansetron HCl 4 mg 01/21/18 13:43 Zofran IVPUSH 01/21/18 13:44 ONETIME ONE - Radiology Interpretation Free Text/Narrative:: cholelithiases with changes of acute cholecystitis per CT report Departure - Departure Time of Disposition: 15:52 Disposition: Home, Self-Care 01 Condition: Good Clinical Impression: Cholecystitis - Discharge Information *PRESCRIPTION DRUG MONITORING PROGRAM REVIEWED*: No *COPY OF PRESCRIPTION DRUG MONITORING REPORT IN PATIENT KUSHAL: No Instructions: Cholecystitis Referrals: Carly Trotter DO [Primary Care Provider] - Additional Instructions: I visited with Dr. Davis regarding your scan and symptoms. He would like you to go home and come into the clinic and schedule your surgery. Please call [facility] to do so. I have given you a prescription for zofran which is for nausea, hydrocodone for pain, and augmentin which is an antibiotic. Please eat extra yogurt or start a probiotic for the next 1-2 months due to the antibiotic use. Stay well hydrated. Please call the hospital if you have any other questions or concerns. If you experience worsening abdominal pain, fever, worsening nausea and vomiting , come back to the ER. ED Communication - Discussed Case With (1) Discussed Case With (1): Outpatient Provider (REviewed case with Dr. Davis, surgeon at [facility]. Recommended schedule via clinic visit for gall bladder removal, start on pain medications, anti-emetic, antibiotic.) - Problem List & Annotations (1) Cholecystitis SNOMED Code(s): 75005756 Code(s): K81.9 - CHOLECYSTITIS, UNSPECIFIED Status: Acute Priority: Medium Current Visit: Yes - Problem List Review Problem List Initiated/Reviewed/Updated: Yes - My Orders Last 24 Hours: My Active Orders 01/21/18 12:28 EKG Documentation Completion [RC] STAT Abdomen Pelvis w Cont [CT] Stat 01/21/18 12:37 Sodium Chloride 0.9% [Saline Flush] 10 ml FLUSH ASDIRECTED PRN Saline Lock Insert [OM.PC] Routine 01/21/18 12:45 Lactated Ringers @ 125 MLS/HR(1,000ml) Lactated Ringers [Ringers, Lactated] 1, 000 ml IV ASDIRECTED 01/21/18 13:41 MAGNESIUM [CHEM] Stat URINALYSIS W/MICROSCOPIC [UA W/MICROSCOPIC] [URIN] Stat - Assessment/Plan Last 24 Hours: My Active Orders 01/21/18 12:28 EKG Documentation Completion [RC] STAT Abdomen Pelvis w Cont [CT] Stat 01/21/18 12:37 Sodium Chloride 0.9% [Saline Flush] 10 ml FLUSH ASDIRECTED PRN Saline Lock Insert [OM.PC] Routine 01/21/18 12:45 Lactated Ringers @ 125 MLS/HR(1,000ml) Lactated Ringers [Ringers, Lactated] 1, 000 ml IV ASDIRECTED 01/21/18 13:41 MAGNESIUM [CHEM] Stat URINALYSIS W/MICROSCOPIC [UA W/MICROSCOPIC] [URIN] Stat Assessment:: cholecystitis Plan: I visited with Dr. Davis regarding your scan and symptoms. He would like you to go home and come into the clinic and schedule your surgery. Please call [facility] to do so. I have given you a prescription for zofran which is for nausea, hydrocodone for pain, and augmentin which is an antibiotic. Please eat extra yogurt or start a probiotic for the next 1-2 months due to the antibiotic use. Stay well hydrated. Please call the hospital if you have any other questions or concerns. If you experience worsening abdominal pain, fever, worsening nausea and vomiting , come back to the ER.
[2018-01-21] MEDS ORDERED: Lactated Ringers 1,000 ML IV ONE (14:04)
[2018-01-21] MEDS ORDERED: Morphine 2 MG/ML Syringe IVPUSH ONE (15:11)
[2018-01-21 15:29] VITALS: BP 98/57
[2018-01-21] MEDS ORDERED: Potassium Chloride 20 MEQ Tab.ER PO ONE (15:47)
== END 2018-01-21 16:14 | disposition home or self-care (01) ==
LOC: VM.ED 12:17
DX: K80.00 Calculus of gallbladder with acute cholecystitis without obstruction (principal); I10 Essential (primary) hypertension; Z79.82 Long term (current) use of aspirin; Z79.899 Other long term (current) drug therapy; Z88.2 Allergy status to sulfonamides; Z88.8 Allergy status to other drugs, medicaments and biological substances
CPT/HCPCS: 36415; 74177; 80053; 81001; 82150; 83605; 83735; 83880; 84443; 84484; 85025; 85610; 93005; 93010; 96361; 96374; 96375; 99284; 99284-GF-25; A9270-GY; J2270; J2405; J7120; Q9967

== ENCOUNTER 2024-01-09 10:10 | Emergency (ER) | payer MEDICARE, OTHER ==
[2024-01-09 10:41] LABS: BASOPHILS PERCENT AUTO 0.1 % (0.2-1.2); EOSINOPHILS PERCENT AUTO 0.3 % (0.0-4.0); HEMATOCRIT 40.4 % (33.0-47.0); HEMOGLOBIN 13.6 g/dL (12.0-16.0); IMMATURE GRAN ABSOLUTE AUTO 0.01 x10^3/uL (0.00-0.07); LYMPHOCYTES ABSOLUTE AUTO 0.7 x10^3/uL (1.0-4.8); LYMPHOCYTES PERCENT AUTO 7.8 % (25.0-50.0); MEAN CORPUSCULAR HEMOGLOBIN 29.8 pg (26.0-32.0); MEAN CORPUSCULAR HGB CONC 33.7 g/dL (32.0-36.0); MEAN CORPUSCULAR VOLUME 88.6 fL (78.0-93.0); NEUTROPHILS ABSOLUTE AUTO 6.9 x10^3/uL (1.8-7.7); NEUTROPHILS PERCENT AUTO 79.7 % (50.0-80.0); PLATELET COUNT,PLT 227 x10^3/uL (130-400); RED BLOOD CELL COUNT 4.56 x10^6/uL (4.00-5.50); WHITE BLOOD CELL COUNT,WBC 8.6 x10^3/uL (4.0-10.0)
[2024-01-09 11:03] LABS: A/G RATIO 1.03; ALANINE AMINOTRANSFERASE,ALT 38 U/L (14-59); ALBUMIN 4.1 g/dL (3.4-5.0); ALKALINE PHOSPHATASE 91 U/L (46-116); ASPARTATE AMNIOTRANSFERASE,AST 41 U/L (15-37); BILIRUBIN TOTAL 0.5 mg/dL (0.2-1.0); BLOOD UREA NITROGEN,BUN 44 mg/dL (7-18); CALCIUM 10.3 mg/dL (8.5-10.1); CARBON DIOXIDE,CO2 30 mmol/L (21-32); CHLORIDE,CL 105 mmol/L (98-107); CREATININE 0.9 mg/dL (0.55-1.02); GLUCOSE RANDOM 124 mg/dL (70-99); POTASSIUM,K 3.2 mmol/L (3.5-5.1); PROTEIN TOTAL,TP 8.1 g/dL (6.4-8.2); SODIUM,NA 144 mmol/L (136-145)
[2024-01-09 11:04] LABS: ANION GAP 12.2 mmol/L (5-15); ESTIMATED GFR 65 mL/min (>=60)
[2024-01-09 11:05] LABS: CREATINE KINASE,CK 618 U/L (26-192)
[2024-01-09] MEDS: Sodium Chloride 0.9% 1,000 ML IV ONE (12:00)
[2024-01-09 13:13] VITALS: BP 151/94; PULSE 97
[2024-01-09 14:29] LABS: APPEARANCE,URINE SLIGHTLY CLOUDY (CLEAR); BILIRUBIN,URINE SMALL (NEGATIVE); COLOR,URINE YELLOW (YELLOW); GLUCOSE,URINE NEGATIVE (NEGATIVE); KETONES,URINE 40 mg/dL (NEGATIVE); LEUKOCYTE ESTERASE,URINE NEGATIVE (NEGATIVE); NITRITE,URINE NEGATIVE (NEGATIVE); OCCULT BLOOD,URINE MODERATE (NEGATIVE); PROTEIN,URINE >=300 mg/dL (NEGATIVE)
[2024-01-09 14:32] LABS: AMPHETAMINES SCREEN, URINE NEGATIVE (NEGATIVE); BARBITURATE SCREEN,URINE POSITIVE (NEGATIVE); BENZODIAZEPINES SCREEN,URINE NEGATIVE (NEGATIVE); BUPRENORPHINE SCREEN,URINE NEGATIVE (NEGATIVE); COCAINE METABOLITES,URINE NEGATIVE (NEGATIVE); METHADONE SCREEN, URINE NEGATIVE (NEGATIVE); METHAMPHETAMINE SCREEN, URINE NEGATIVE (NEGATIVE); OXYCODONE SCREEN,URINE NEGATIVE (NEGATIVE); PCP SCREEN,URINE NEGATIVE (NEGATIVE); THC SCREEN,URINE 50 NG/ML NEGATIVE (NEGATIVE)
[2024-01-09 14:36] LABS: BACTERIA,URINE FEW /HPF (NOT SEEN); MUCUS,URINE OCCASIONAL /LPF (NOT SEEN); SQUAMOUS EPITHELIAL CELLS,UR FEW /HPF (NOT SEEN); WBC,URINE 0-5 /HPF (NOT SEEN)
[2024-01-09 14:37] LABS: YEAST BUDDING,URINE FEW /HPF (NONE - FEW)
== END 2024-01-09 18:05 | disposition short-term general hospital (02) ==
LOC: VM.ED 10:10
DX: R41.0 Disorientation, unspecified (principal); R44.0 Auditory hallucinations; R44.1 Visual hallucinations; Z79.82 Long term (current) use of aspirin; I10 Essential (primary) hypertension; Z79.899 Other long term (current) drug therapy; Z88.8 Allergy status to other drugs, medicaments and biological substances; Z88.2 Allergy status to sulfonamides
CPT/HCPCS: 36415; 70450; 80053; 80305-QW; 80307; 81001; 82550; 83605; 84443; 84484; 85025; 93005; 96360; 99285-25; J7030

== ENCOUNTER 2024-02-10 13:05 | Emergency (ER) | payer MEDICARE, OTHER ==
[2024-02-10 13:22] VITALS: BP 143/81; PULSE 72
== END 2024-02-10 13:55 ==
LOC: VM.ED 13:05
DX: Z04.3 Encounter for examination and observation following other accident (principal); I10 Essential (primary) hypertension; Z79.82 Long term (current) use of aspirin; Z79.899 Other long term (current) drug therapy; Z88.2 Allergy status to sulfonamides; Z88.8 Allergy status to other drugs, medicaments and biological substances; Z75.8 Other problems related to medical facilities and other health care; W18.30XA Fall on same level, unspecified, initial encounter
CPT/HCPCS: 99284; 99285